=== PATIENT | male | born 1995 | race Caucasian/White ===

== ENCOUNTER 2018-10-25 06:36 | Observation (INO) | payer OTHER ==
[~2018-10-25] VITALS: Ht 185.4 cm; Wt 103.1 kg
[2018-10-25] MEDS ORDERED: IBUPROFEN 600 MG TAB PO ONE (07:15)
[2018-10-25 07:39] LABS: BASO % 0.4 % (0.0-1.0); EOS # 0.1 10^3/uL (0.0-0.50); EOS % 0.8 % (0.0-3.0); HEMATOCRIT 43.1 % (42.0-52.0); LYMPH % 18.8 % (24.0-44.0); MEAN CORPUSCULAR HEMOGLOBIN 30.9 pg (27.0-33.0); MEAN CORPUSCULAR HGB CONC 34.8 g/dl (32.0-36.5); MEAN CORPUSCULAR VOLUME 88.7 fl (80.0-96.0); MONO # 1.6 10^3/uL (0.0-0.8); MONO % 14.4 % (0.0-5.0); NEUTROPHILS # 7.1 10^3/uL (1.8-7.7); NEUTROPHILS % 65.2 % (36.0-66.0); PLATELET COUNT, AUTOMATED 200 10^3/uL (150-450); RED BLOOD COUNT 4.86 10^6/uL (4.30-6.10); WHITE BLOOD COUNT 10.8 10^3/uL (4.0-10.0)
[2018-10-25 07:49] LABS: INR 1.09; PROTHROMBIN TIME 14.2 SECONDS (12.1-14.4)
[2018-10-25 07:50] LABS: PARTIAL THROMBOPLASTIN TIME 33.3 SECONDS (25.4-37.6)
[2018-10-25 07:52] LABS: D-DIMER QUANT 546.34 ng/ml (<500)
--- NOTE | 2018-10-25 07:58 | REP ---
Chest x-ray: Two views. History: Chest pain. Findings: The lungs are well inflated and clear. Pleural angles are sharp. Heart size is normal. Pulmonary vasculature is not increased. No significant bony abnormality is seen. EKG monitoring electrodes are noted. Impression: Negative chest x-ray. Electronically Signed by Jason Huertas MD 10/25/2018 07:50 A
[2018-10-25] MEDS ORDERED: ISOVUE-370 76% 100ML VIAL (Q9967) As Ordered ONE (08:19)
[2018-10-25 08:27] LABS: ALT/SGPT 61 U/L (12-78); BILIRUBIN,DIRECT 0.2 MG/DL (0.0-0.2); BILIRUBIN,TOTAL 0.9 MG/DL (0.2-1.0); BLOOD UREA NITROGEN 9 MG/DL (7-18); CALCIUM LEVEL 9.1 MG/DL (8.5-10.1); CARBON DIOXIDE LEVEL 27 MEQ/L (21-32); CHLORIDE LEVEL 104 MEQ/L (98-107); CPK CREATINE PHOSPHOKINASE 1185 U/L (39-308); CREATININE FOR GFR 1.26 MG/DL (0.70-1.30); GLUCOSE, FASTING 88 MG/DL (70-100); LIPASE 85 U/L (73-393); MB/CK RELATIVE INDEX 0.35 (< OR =4); POTASSIUM SERUM 4.2 MEQ/L (3.5-5.1); SODIUM LEVEL 138 MEQ/L (136-145); TOTAL PROTEIN 7.5 GM/DL (6.4-8.2); TROPONIN I 0.34 NG/ML (< 0.10)
[2018-10-25] MEDS: NS 1,000 ML IV SCH ×3 (08:54→22:37)
--- NOTE | 2018-10-25 09:20 | REP ---
CT PULMONARY ANGIOGRAM: WITH IV CONTRAST. HISTORY: Pleuritic left chest pain. COMPARISON STUDIES: Comparison is made with today's chest x-ray. CONTRAST DOSE: 75 mL of Isovue [address] TECHNIQUE: Helical scanning is acquired and overlapping 1.5 mm and contiguous 3 mm axial images are reformatted. In addition, maximum intensity projection and multiplanar re-formation images are generated in sagittal and coronal imaging projections. CT PULMONARY ANGIOGRAPHIC FINDINGS: There is good opacification of the pulmonary arterial tree. There is no CT evidence of pulmonary embolism. Thoracic aorta enhances homogeneously and is normal in course and caliber. No pleural or pericardial effusion is seen. Lung calvo are clear. No infiltrate or atelectasis is appreciated. No pulmonary nodule or mass lesion is seen. No bony destructive lesion is appreciated. There is moderate diffuse fatty infiltration of the liver. No focal liver lesion is seen. No adrenal lesion is observed. The visualized upper abdominal structures are otherwise unremarkable. IMPRESSION: No CT evidence of pulmonary embolus. No active disease in the chest. Moderate diffuse fatty infiltration of the liver. Electronically Signed by Jason Huertas MD 10/25/2018 09:22 A
[2018-10-25] MEDS ORDERED: MOM 30ML SUSPENSION UDC PO PRN (10:30)
[2018-10-25] MEDS ORDERED: MAALOX 30 ML SUSP *UDC PO PRN (10:30)
[2018-10-25] MEDS ORDERED: ACETAMINOPHEN TAB 650MG DOSE (2X325MG) PO PRN (10:30)
[2018-10-25] MEDS ORDERED: IBUPROFEN 400 MG TAB PO PRN (13:00)
--- NOTE | 2018-10-25 13:01 | HPEPDOC ---
[facility] Medical History & Physical Date of Admission Oct 25, 2018 History and Physical CHIEF COMPLAINT: [Chest pain] HISTORY OF PRESENT ILLNESS: 22-year-old gentleman with a past medical history coming in complaining of chest pain with movement. 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 Patient described it as sharp pain without any radiation or shortness of breath. Patient also denied a fever, nausea, abdo jose de jesus pain, respiratory infection, diarrhea or dysuria. Patient also denies of any trauma to his chest or excessive exercise using upper extremity or chest muscle. Patient was evaluated in the emergency room noted to have slight elevation of troponin and CK but EKG did not show any ST elevation including no diffuse ST elevation. Cardiology Dr. Ortiz was consulted by ER recommended admission to the hospital for further enzyme pending and monitoring. Patient is being admitted for further evaluation and treatment. PAST MEDICAL HISTORY: None PAST SURGICAL HISTORY: None SOCIAL HISTORY: [employer], denies of smoking, drinking, or drug abuse FAMILY HISTORY: Father and mother without any medical condition that he is aware of ALLERGIES: Please see below. REVIEW OF SYSTEMS: 12 point review systems negative than those described in [facility] HOME MEDICATIONS: Please see below. PHYSICAL EXAMINATION: VITAL SIGNS: Please see below GENERAL APPEARANCE: Resting comfortably HEENT: Normocephalic, PERRLA, Mucous moist, CARDIOVASCULAR: S1,S2, pulse present, regularly, regular, tenderness with mo vement LUNGS: Equal air entry b/l, no wheezes or crackle ABDOMEN: Soft, BS present, no tenderness, no guarding GENITOURINARY: No Isaacs EXTREMITIES: B/L no edema, capillary refill present SKIN: Warm, No fever NEUROLOGICAL: Cranial nerves grossly intact PSYCHIATRIC: Normal mood and affect for current situation LABORATORY DATA: See below. IMAGING: [ CTA chest: No CT evidence of pulmonary embolus. No active disease in the chest. Moderate diffuse fatty infiltration of the liver. CXR: Negative chest x-ray.] MICROBIOLOGY: Please see below. 22-year-old gentleman with a past medical history coming in complaining of chest pain with movement. 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 Atypical chest pain, myocarditis -Possible correlation with smallpox vaccination injection 2 weeks ago as no other clear cause of myocarditis at this time -Cardiology consult Dr. Ortiz -Pain management -Echocardiogram -Serial cardiac enzyme, telemetry Positive d-dimer, secondary due to problems above -CTA chest negative for PE Elevated CK -Likely myocarditis -Trend -IV fluid Early ambulation for DVT prophylaxis Vital Signs Vital Signs Date Time Temp Pulse Resp B/P (MAP) Pulse Ox O2 Delivery O2 Flow Rate FiO2 10/25/18 11:16 98.6 12 126/70 (88) 10/25/18 11:08 78 96 10/25/18 06:53 Room Air Laboratory Data Labs 24H Laboratory Tests 2 10/25/18 07:06: Immature Granulocyte % (Auto) 0.4, White Blood Count 10.8H, Red Blood Count 4.86, Hemoglobin 15.0, Hematocrit 43.1, Mean Corpuscular Volume 88.7, Mean Corpuscular Hemoglobin 30.9, Mean Corpuscular Hemoglobin Concent 34.8, Red Cell Distribution Width 11.8, Platelet Count 200, Neutrophils (%) (Auto) 65.2, Lymphocytes (%) (Auto) 18.8L, Monocytes (%) (Auto) 14.4H, Eosinophils (%) (Auto) 0.8, Basophils (%) (Auto) 0.4, Neutrophils # (Auto) 7.1, Lymphocytes # (Auto) 2.0, Monocytes # (Auto) 1.6H, Eosinophils # (Auto) 0.1, Basophils # (Auto) 0.0, Nucleated Red Blood Cells % (auto) 0.0, Prothrombin Time 14.2, Prothromb Time International Ratio 1.09, Activated Partial Thromboplast Time 33.3, D-Dimer, Quantitative 546.34H, Anion Gap 7L, Calcium Level 9.1, Aspartate Amino Transf (AST/SGOT) 50H, Alanine Aminotransferase (ALT/SGPT) 61, Alkaline Phosphatase 97, Total Bilirubin 0.9, Direct Bilirubin 0.2, Total Creatine Kinase 1185H, Creatine Kinase MB 4.0H, Creatine Kinase MB Relative Index 0.35, Troponin I 0.34H, Total Protein 7.5, Albumin 4.0, Albumin/Globulin Ratio 1.14, Lipase 85 10/25/18 11:18: Troponin I 0.37H CBC/BMP Laboratory Tests 10/25/18 07:06 Red Blood Count 4.86, Mean Corpuscular Volume 88.7, Mean Corpuscular Hemoglobin 30.9, Mean Corpuscular Hemoglobin Concent 34.8, Red Cell Distribution Width 11.8, Neutrophils (%) (Auto) 65.2, Lymphocytes (%) (Auto) 18.8 L, Monocytes (%) (Auto) 14.4 H, Eosinophils (%) (Auto) 0.8, Basophils (%) (Auto) 0.4, Neutrophils # (Auto) 7.1, Lymphocytes # (Auto) 2.0, Monocytes # (Auto) 1.6 H, Eosinophils # (Auto) 0.1, Basophils # (Auto) 0.0 Home Medications No Active Prescriptions or Reported Meds Allergies Coded Allergies: No Known Allergies (Unverified , 10/25/18) LEA CHENG MD Oct 25, 2018 12:10
[2018-10-25 14:50] VITALS: BP 118/70
[2018-10-25 20:00] VITALS: BP 128/83
[2018-10-25 20:06] LABS: TROPONIN I 0.24 NG/ML (< 0.10)
--- NOTE | 2018-10-25 22:12 | ECGEPIP ---
Stationary ECG Study [facility] - ED Test Date: 2018-10-25 Pat Name: PEE SAAVEDRA Department: Room: - Gender: M Textile Machine Operator: jennifer : 1995 Requested By: Reynaldo Willams Order Number: [id number] Reading MD: Reynaldo Patricio Measurements Intervals [place] Rate: 80 P: 5 [place]: 123 QRS: 48 QRSD: 100 T: 19 QT: 375 QTc: 435 Interpretive Statements SINUS RHYTHM BENIGN EARLY REPOLARIZATION NO PRIORS FOR COMPARISON Electronically Signed On 10-25-2018 22:12:13 EDT by Reynaldo Patricio
[2018-10-25 23:59] VITALS: BP 123/82
[2018-10-26] VITALS (7 sets, daily range): BP systolic 106–150; BP diastolic 54–82
[2018-10-26] MEDS: NS 1,000 ML IV SCH ×3 (05:19→18:30)
[2018-10-26 07:02] LABS: MB/CK RELATIVE INDEX 0.62 (< OR =4); TROPONIN I 0.12 NG/ML (< 0.10)
--- NOTE | 2018-10-26 11:32 | IPNPDOC ---
Date Seen The patient was seen on 10/26/18. Progress Note SUBJECTIVE: Patient without chest pain at rest. Evaluate pain level while ambulation with PT and OT today. Spoke with Dr. Ortiz who read the echocardiogram showing within normal. Cardiac enzymes including CK and troponin trended down with current management. Left shoulder wound from vaccine injection covered with Tegaderm. Dr. Ortiz recommend possible discharge tomorrow. [place] 23st birthday tomorrow. Informed patient will be discharged home on antibiotic and would need to avoid alcohol consumption for the duration of the antibiotic therapy. OBJECTIVE PHYSICAL EXAMINATION: VITAL SIGNS: Please see below GENERAL APPEARANCE: Resting comfortably HEENT: Normocephalic, PERRLA, Mucous moist, CARDIOVASCULAR: S1,S2, pulse present, regularly, regular, tenderness with movement LUNGS: Equal air entry b/l, no wheezes or crackle ABDOMEN: Soft, BS present, no tenderness, no guarding GENITOURINARY: No Isaacs EXTREMITIES: B/L no edema, capillary refill present SKIN: Warm, No fever, left shoulder injection site lesion NEUROLOGICAL: Cranial nerves grossly intact PSYCHIATRIC: Normal mood and affect for current situation LABORATORY DATA, IMAGING STUDIES, MICROBIOLOGY: Please see below. Echocardiogram: [Official report pending]. Assessment and plan: 22-year-old gentleman with a past medical history coming in complaining of chest pain with movement. 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 Atypical chest pain, myocarditis -Possible correlation with smallpox vaccination injection 2 weeks ago as no other clear cause of myocarditis at this time -Cardiology consult Dr. Ortiz -Pain management -Echocardiogram await official report, but spoke to Dr. Ortiz: Echo within nml -Serial cardiac enzyme trended down, telemetry -PT/OT for pain eval while ambulating Positive d-dimer, secondary due to problems above -CTA chest: No CT evidence of pulmonary embolus. No active disease in the chest. Moderate diffuse fatty infiltration of the liver. -CXR: Negative chest x-ray. Elevated CK -Likely myocarditis -Trend -IV fluid left shoulder lesion from injection trauma -doxycycline for ten days -Continue Tegaderm therapy -Informed patient will be discharged home on antibiotic and would need to avoid alcohol consumption for the duration of the antibiotic therapy. Early ambulation for DVT prophylaxis DISPOSITION: [Likely tomorrow]. VS, I&O, 24H, Fishbone Vital Signs/I&O Vital Signs Date Time Temp Pulse Resp B/P (MAP) Pulse Ox O2 Delivery O2 Flow Rate FiO2 10/26/18 08:00 98.0 87 20 145/82 (103) 97 10/25/18 06:53 Room Air I&O- Last 24 Hours up to 6 AM 10/26/18 06:00 Intake Total 3900 ml Output Total 400 ml Balance 3500 ml Laboratory Data 24H LABS Laboratory Tests 2 10/25/18 15:47: Troponin I 0.30H 10/25/18 19:37: Troponin I 0.24H, Total Creatine Kinase 658H 10/26/18 06:26: Troponin I 0.12#H, Total Creatine Kinase 512H, Creatine Kinase MB 3.0, Creatine Kinase MB Relative Index 0.62 LEA CHENG MD Oct 26, 2018 11:32
[2018-10-26] MEDS: DOXYCYCLINE HYCLATE 100 MG TAB PO SCH (12:45)
--- NOTE | 2018-10-26 13:12 | ECHO ---
DATE OF PROCEDURE: 10/25/2018 AGE: 22 REFERRING PROVIDER: Dr. Karli Glover PATIENT LOCATION: Room 3226 REASON FOR THE ECHOCARDIOGRAM: Chest pain, abnormal serum troponin, elevated CPK. 2D MEASUREMENTS: IVS: 1.0 cm LV: 5.3 cm LVPW: 1.2 cm LA: 3.6 cm Aorta: 3.4 cm IVC: 2.0 cm DOPPLER MEASUREMENTS: Peak velocity across the aortic valve: 1.1 m/s Peak velocity across the LVOT: 0.71 m/s Mitral E: 0.98, Mitral A: 0.47 with a ratio of 2.1 Maximum tricuspid valve velocity: 2.0 m/s 2D COMMENTS: 1. Normal left ventricular size, wall thickness and normal global left ventricular systolic function. The estimated left ventricular systolic ejection fraction is 60-65%. 2. Normal left atrium. Normal right atrium and right ventricle. 3. The atrial septum appeared to be normal without evidence of defect or shunt. 4. Normal aortic root. 5. No pericardial effusion seen. 6. The aortic valve, mitral valve, tricuspid valve, and pulmonic valve appeared to be normal. The proximal pulmonary artery branches also appeared to be normal in size. 7. The inferior vena cava is mildly enlarged. DOPPLER: It detects trace aortic regurgitation, trace to mild mitral regurgitation, trace to mild tricuspid regurgitation. The calculated pulmonary artery systolic pressure was normal. The left ventricular diastolic function also was normal. IMPRESSION: 1. Normal global left ventricular systolic and diastolic function. 2. Trace aortic regurgitation. 3. Trace to mild mitral regurgitation. 4. Trace to mild tricuspid regurgitation with a normal calculated pulmonary systolic pressure. 5. No pericardial effusion seen. MTDD
[2018-10-26] MEDS ORDERED: DOXY-350 PO (18:41)
[2018-10-27 04:00] VITALS: BP 145/93
[2018-10-27] MEDS: NS 1,000 ML IV SCH (04:38)
[2018-10-27 05:59] LABS: MB/CK RELATIVE INDEX 0.85 (< OR =4); TROPONIN I 0.03 NG/ML (< 0.10)
--- NOTE | 2018-10-27 07:32 | DS.PDOC ---
Discharge Summary General Date of Admission Oct 25, 2018 at 10:17 Date of Discharge 10/27/18 Discharge Summary PROCEDURES PERFORMED DURING STAY: [None]. ADMITTING DIAGNOSES: Atypical chest pain, myocarditis Rhabdomyolysis left shoulder lesion from injection trauma DISCHARGE DIAGNOSES: Atypical chest pain, myocarditis COMPLICATIONS/CHIEF COMPLAINT: Myocarditis. HISTORY OF PRESENT ILLNESS: [22-year-old gentleman with a past medical history coming in complaining of chest pain with movement. 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 Patient described it as sharp pain without any radiation or shortness of breath. Patient also denied a fever, nausea, abdominal pain, respiratory infection, diarrhea or dysuria. Patient also denies of any trauma to his chest or excessive exercise using upper extremity or chest muscle. Patient was evaluated in the emergency room noted to have slight elevation of troponin and CK but EKG did not show any ST elevation including no diffuse ST elevation. Cardiology Dr. Ortiz was consulted by ER recommended admission to the hospital for further enzyme pending and monitoring. Patient is being admitted for further evaluation and treatment. ]. HOSPITAL COURSE: [22-year-old gentleman with a past medical history coming in complaining of chest pain with movement. 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 Patient's symptoms also improved with [id number] therapy. Patient was started on doxycycline for vaccine site injection infusion. Patient stable to return home today. Spoke to Dr. Ortiz who also confirmed that the patient was able to return home today and will see him early this morning and is aware of anticipated discharge today. Atypical chest pain, myocarditis -Possible correlation with smallpox vaccination injection 2 weeks ago as no other clear cause of myocarditis at this time -Cardiology consult Dr. Ortiz -Pain management -Echocardiogram:1. Normal global left ventricular systolic and diastolic function. 2. Trace aortic regurgitation. 3. Trace to mild mitral regurgitation.4. Trace to mild tricuspid regurgitation with a normal calculated pulmonary systolic pressure. 5. No pericardial effusion seen. -Serial cardiac enzyme trended down and normalized, s/p telemetry -PT/OT for pain eval with ambulation improved and pt willing to return home. Positive d-dimer, secondary due to problems above -CTA chest: No CT evidence of pulmonary embolus. No active disease in the chest. Moderate diffuse fatty infiltration of the liver. -CXR: Negative chest x-ray. Elevated CK -Likely myocarditis -Trended and nmlized -IV fluid left shoulder lesion from injection trauma -doxycycline for ten days -Continue wound therapy -Informed patient will be discharged home on antibiotic and would need to avoid alcohol consumption for the duration of the antibiotic therapy. ]. DISCHARGE MEDICATIONS: Please see below. ALLERGIES: Please see below. PHYSICAL EXAMINATION ON DISCHARGE: VITAL SIGNS: Please see below GENERAL APPEARANCE: Resting comfortably HEENT: Normocephalic, PERRLA, Mucous moist, CARDIOVASCULAR: S1,S2, pulse present, regularly, regular LUNGS: Equal air entry b/l, no wheezes or crackle ABDOMEN: Soft, BS present, no tenderness, no guarding GENITOURINARY: No Isaacs EXTREMITIES: B/L no edema, capillary refill present SKIN: Warm, No fever, left shoulder injection site lesion NEUROLOGICAL: Cranial nerves grossly intact PSYCHIATRIC: Normal mood and affect for current situation LABORATORY DATA: Please see below. IMAGING: [-CTA chest: No CT evidence of pulmonary embolus. No active disease in the chest. Moderate diffuse fatty infiltration of the liver. -CXR: Negative chest x-ray. ] PROGNOSIS: [improved] ACTIVITY: [As tolerated]. DIET: [Regular] DISCHARGE PLAN: [Discharge with 10 days' worth of doxycycline.] DISPOSITION: Home DISCHARGE INSTRUCTIONS: Please follow-up with PCP within one week. Please avoid alcohol consumption for the duration of antibiotic therapy. DISCHARGE CONDITION: [Stable]. TIME SPENT ON DISCHARGE: Greater than [30] minutes. Vital Signs/I&Os Vital Signs Date Time Temp Pulse Resp B/P (MAP) Pulse Ox O2 Delivery O2 Flow Rate FiO2 10/27/18 04:00 97.3 76 20 145/93 (110) 97 10/25/18 06:53 Room Air I&O- Last 24 Hours up to 6 AM 10/27/18 06:00 Intake Total 5010 ml Output Total 1900 ml Balance 3110 ml Laboratory Data Labs 24H Laboratory Tests 2 10/27/18 05:03: Total Creatine Kinase 235, Creatine Kinase MB 2.0, Creatine Kinase MB Relative Index 0.85, Troponin I 0.03# Discharge Medications Scheduled Doxycycline Monohydrate (Doxycycline) 100 Mg Capsule, 100 MG PO BID Allergies Coded Allergies: No Known Allergies (Unverified , 10/25/18) LEA CHENG MD Oct 27, 2018 07:32
[2018-10-27 08:00] VITALS: BP 128/90
[2018-10-27] MEDS: DOXYCYCLINE HYCLATE 100 MG TAB PO SCH (08:07)
--- NOTE | 2018-10-30 07:47 | CR ---
DATE OF CONSULTATION: 10/25/2018 REFERRING PROVIDER: Dr. Dayan Glover PRIMARY PROVIDER: [place] [facility] REASON FOR CONSULTATION: Chest pain, abnormal serum troponin. HISTORY OF PRESENT ILLNESS: 22-year-old male who has been very healthy and not taking any medications prior to coming to the hospital who came for further evaluation because he has been having chest pain that seems to be pleuritic in nature. He also has been having left upper extremity pain involving his shoulder and his arm pit. Upon evaluation in the emergency room (ER), he was found to have an abnormal serum troponin and cardiology consult was called. He was admitted for further management and monitoring. His serum CPK was also markedly elevated and there was some concern about rhabdomyolysis. When I saw Mr. Patel in the evening of 10/25/2018 in his room in the progressive care unit (PCU), he was in no acute distress at rest, supine in bed, and his was at bedside. He denies any palpitations, shortness of breath or orthopnea. He could not remember whether he has had any fever or not. He, however, has been having pain in his left upper extremity, left shoulder and also across his chest. His chest pain increased with deep breathing. He was having some chest pain at rest. He denies any nausea, vomiting, diarrhea, melena or hematemesis. He has no focal manifestation. There is no pedal edema. There is no cough. PAST MEDICAL HISTORY: Unremarkable. PAST SURGICAL HISTORY: Also unremarkable. MEDICATIONS: - ibuprofen - Tylenol - milk of magnesia - normal saline at 100 mL/hr FAMILY HISTORY: Unremarkable. SOCIAL HISTORY: The patient is a member of the [employer], stationed in [place]. He does not smoke or abuse alcohol. He does not use illicit drugs. ALLERGIES: No known drug allergies. PHYSICAL EXAMINATION: The patient is alert and oriented, in no acute distress at rest and very pleasant. His vital signs when I saw him revealed a blood pressure of 128/83, pulse 79, respirations 18, and maximum temperature 98.2 degrees Fahrenheit with an oxygen saturation of 97% on room air. Examination of Head: Atraumatic. Neck is supple, without jugular venous distention (JVD). The lungs were clear bilaterally on auscultation without any wheezing or crackles. The heart examination revealed normal S1 and S2 without gallops. The PMI is not displaced. There is no rub. Abdomen is soft and nontender. Extremities reveal no pedal edema. Neurological examination is negative for focal deficit. Skin examination revealed redness and tenderness and swelling at the level of the left upper arm around the site of a recent vaccination for small pox. LABS: CBC revealed a WBC of 10.8, hemoglobin 15.0, hematocrit 43.1 and platelets 200,000. BMP revealed a sodium of 138, potassium 4.2, chloride 104, CO2 27, BUN 9, creatinine 1.26, fasting glucose 88, calcium 9.1. Liver enzymes revealed a total bilirubin of 0.9, direct bilirubin 0.2, AST 50, ALT 61, alkaline phosphatase 97, total protein 7.5 and albumin 4.0. Serum lipase was 85. First set of cardiac enzymes revealed a total CPK of 1,185 with a serum troponin of 0.34. A second troponin was 0.37 and the third troponin was 0.30. PT on admission was 14.2 with an INR of 1.09 and a PTT of 33. was 546.3. Chest x-ray on admission revealed a negative study. No cardiomegaly. Chest CT done on admission 10/25/2018 revealed no evidence of pulmonary embolism. No active disease process. Diffuse fatty infiltration of the liver was noted. Electrocardiogram revealed normal sinus rhythm at 80 beats per minute and minimal ST elevation noted consistent with probably early repolarization versus pericarditis. Echocardiogram revealed a normal global left ventricular systolic function estimated at 60% to 65%, trace valvular heart disease in the aortic valve, the mitral valve and the tricuspid valve. No pericardial effusion. IMPRESSION: Chest pain in this 22-year-old male without any risk factors for coronary artery disease (CAD) and very active with the who came to the ER for further evaluation and he was found to have an abnormal serum troponin and elevated serum CPK. His EKG is minimally abnormal and this seems to be consistent with early repolarization. The patient had vaccination for small pox about two weeks ago and it seems that his body has over reacted and developed some inflammatory reaction to that and it also seems that he has cellulitis around the site of the injection in the left upper arm. I believe his elevated serum CPK and troponin is most likely related to some degree of myositis/myocarditis and he should be able to do well. The patient was started on IV fluids and it seemed that his serum CPK is improving and will continue the same. The case was discussed with the nurse and triple antibiotic ointment was applied to the skin lesion. The case also was discussed with his hospitalist who plans to start him on by mouth antibiotics. It was a pleasure to participate in the care of Mr. Francisco Patel for his chest pain. I do not believe he has any underlying CAD and it seems that so far he is responding well to the IV fluids and will continue the same. He should be able to do well from a cardiac point of view. I will follow him as needed while in the hospital. Please do not hesitate to call if any questions. Upon discharge, he will followup with his primary on post.
== END 2018-10-27 09:43 | disposition home or self-care (01) ==
LOC: M ED 06:36 → M ED INP 10:17 → M PCU 14:47
PROVIDERS: ADMIT Internal Medicine; ATTEND Internal Medicine
DX: I51.4 Myocarditis, unspecified (principal); M62.82 Rhabdomyolysis; T88.0XXA Infection following immunization, initial encounter; Y82.8 Other medical devices associated with adverse incidents; Y84.9 Medical procedure, unspecified as the cause of abnormal reaction of the patient, or of later complication, without mention of misadventure at the time of the procedure
CPT/HCPCS: 36415; 71046; 71275; 80048; 80076; 82550; 82553; 83690; 84484; 85025; 85379; 85610; 85730; 93005; 93041; 93306; 94760; 96360; 96361; 97161; 99285; Q9967